=== PATIENT | female | born 1990 | race Caucasian/White ===

== ENCOUNTER 2019-03-28 14:58 | Emergency (ER) | payer BC ==
[2019-03-28 16:25] VITALS: BP 132/79
[2019-03-28] MEDS ORDERED: Lidocaine 4% TOPICAL* 50 ML TOP.SOLN TOPICAL ONE (16:38)
[2019-03-28] MEDS ORDERED: Lidocaine 1% MPF ** 5 ML VIAL INJ ONE (16:40)
--- NOTE | 2019-03-28 17:00 | UC ---
Skin Complaint HPI - HPI Summary HPI Summary: patient has 5 dermal piercings on her abdomen--her ob doctor wants them removed as she may need to have a due to lack of growth--some of the dermal have been in for over 10 years - History of Current Complaint Chief Complaint: [facility]CSkin Time Seen by Provider: 03/28/19 16:30 Stated Complaint: SKIN COMPLAINT Hx Obtained From: Patient ?: Yes Timing: Constant Pain Intensity: 0 Pain Scale Used: 0-10 Numeric Location: Diffuse Aggravating Factor(s): Nothing Alleviating Factor(s): Nothing Associated Signs & Symptoms: Positive: Negative Related History: Foreign Body - Allergy/Home Medications Allergies/Adverse Reactions: Allergies Allergy/AdvReac Type Severity Reaction Status Date / Time erythromycin base Allergy Unknown Verified 03/28/19 16:27 [From Pediazole] Reaction Details sulfisoxazole Allergy Unknown Verified 03/28/19 16:27 [From Pediazole] Reaction Details Home Medications: Home Medications NK [No Home Medications Reported] 03/28/19 [History Confirmed 03/28/19] PMH/Surg Hx/FS Hx/Imm Hx Previously Healthy: Yes - Surgical History Surgical History: Yes Surgery Procedure, Year, and Place: breast augmentation - Family History Known Family History: Positive: None - Social History Occupation: Employed Full-time Lives: With Family Alcohol Use: None Substance Use Type: None Smoking Status (MU): Former Smoker Length of Time of Smoking/Using Tobacco: quit 1 week ago when she found out about the poor growth Review of Systems All Other Systems Reviewed And Are Negative: Yes Constitutional: Positive: Negative Skin: Positive: Other - 5 dermals implanted in abdomen about 10 years ago Eyes: Positive: Negative ENT: Positive: Negative Respiratory: Positive: Negative Cardiovascular: Positive: Negative Gastrointestinal: Positive: Negative Genitourinary: Positive: Negative Motor: Positive: Negative Neurovascular: Positive: Negative Musculoskeletal: Positive: Negative Neurological: Positive: Negative Psychological: Positive: Negative Is Patient Immunocompromised?: No Physical Exam Triage Information Reviewed: Yes Appearance: Well-Appearing, No Pain Distress, Well-Nourished Vital Signs: Initial Vital Signs Temp 99 F 03/28/19 16:21 Pulse 97 03/28/19 16:21 Resp 16 03/28/19 16:21 BP 132/79 03/28/19 16:21 Pulse Ox 100 03/28/19 16:21 Vital Signs Reviewed: Yes Eye Exam: Normal Eyes: Positive: Conjunctiva Clear ENT Exam: Normal ENT: Positive: Normal ENT inspection, Hearing grossly normal. Negative: Trismus , Muffled voice, Hoarse voice Dental Exam: Normal Neck exam: Normal Neck: Positive: Supple, Nontender Respiratory Exam: Normal Respiratory: Positive: Chest non-tender, No respiratory distress, No accessory muscle use Cardiovascular Exam: Normal Cardiovascular: Positive: RRR, Pulses Normal, Brisk Capillary Refill Abdominal Exam: Normal Musculoskeletal Exam: Normal Musculoskeletal: Positive: Strength Intact, ROM Intact, No Edema Neurological Exam: Normal Neurological: Positive: Alert, Muscle Tone Normal Psychological Exam: Normal Skin Exam: Normal Course/Dx - Course Course Of Treatment: discussed options with Dr. Gayle her provided an evidence based practice that dermal will not affect cautery during surgery-- suggested she discuss this with ob doctor and referal made to surgical associates if dermals still need to be removed - Diagnoses Provider Diagnosis: Foreign body (FB) in soft tissue, Discharge ED - Sign-Out/Discharge Documenting (check all that apply): Patient Departure All imaging exams completed and their final reports reviewed: No Studies - Discharge Plan Condition: Stable Disposition: HOME Patient Education Materials: Soft Tissue Foreign Body (ED) Referrals: Arin Salmon MD [Medical Doctor] - 2 Days - Billing Disposition and Condition Condition: STABLE Disposition: Home
== END 2019-03-28 17:10 | disposition home or self-care (01) ==
LOC: UCEAST 14:58
DX: O9A.219 Injury, poisoning and certain other consequences of external causes complicating pregnancy, unspecified trimester (principal); S30.851A Superficial foreign body of abdominal wall, initial encounter; X58.XXXA Exposure to other specified factors, initial encounter; Y92.9 Unspecified place or not applicable; Z88.2 Allergy status to sulfonamides; Z87.891 Personal history of nicotine dependence
CPT/HCPCS: 99211; G0463

== ENCOUNTER 2019-04-21 13:13 | Inpatient (IN) | payer BC ==
[2019-04-21] MEDS ORDERED: Lactated Ringers 1000 ML Bag* 1,000 ML IV ONE ×2 (14:14→22:08)
[2019-04-21] MEDS ORDERED: Penicillin G Potassium IV* 5,000,000 UNITS in NS 0.9% 100 ML* 100 ML IVPB ONE (14:14)
[2019-04-21] MEDS ORDERED: Buffered Lidocaine 1% SYRIN* 1 ML/SYRINGE INTRADERM ONE (14:14)
[2019-04-21] MEDS ORDERED: Lactated Ringers 1000 ML Bag* 1,000 ML IV SCH ×2 (15:00→23:00)
[2019-04-21] MEDS ORDERED: Penicillin G Potassium IV* 3,000,000 UNITS in NS 0.9% 100 ML* 100 ML IVPB SCH (15:00)
[2019-04-21] MEDS ORDERED: Oxytocin in LR* 20 UNITS/1,000 ML BAG IVPB SCH (15:00)
[2019-04-21 15:03] LABS: ABS Basophils 0.1 10^3/ul (0-0.2); ABS Monocytes 0.6 10^3/ul (0-0.8); ABS Neutrophils 10.3 10^3/ul (1.5-7.7); Eosinophil % 0.3 %; Hematocrit 36 % (35-47); Hemoglobin 12.3 g/dL (12.0-16.0); Lymphocyte % 15.5 %; Mean Corpuscular HGB Conc 34 g/dL (31-36); Mean Corpuscular Hemoglobin 30 pg (27-31); Mean Corpuscular Volume 88 fL (80-97); Mean Platelet Volume 8.8 fL (7.4-10.4); Platelet Count 302 10^3/uL (150-450); Red Blood Count 4.06 10^6 /uL (3.70-4.87); Red Cell Distribution Width 14 % (10-15); White Blood Count 13.2 10^3/uL (3.5-10.8)
[2019-04-21 15:30] LABS: Urine Benzodiazepine Screen None Detected (None Detect); Urine Opiates Screen None Detected (None Detect)
[2019-04-21] MEDS: PENICILLIN POTASSIUM IVPB SCH ×2 (19:49→23:52)
[2019-04-21] MEDS: NS 0.9% IVPB SCH ×2 (19:49→23:52)
[2019-04-21] MEDS ORDERED: OBEPIDURAL* 250 ML EPIDURAL ONE (20:28)
[2019-04-21] MEDS ORDERED: Lactated Ringers 1000 ML Bag* 500 ML IV PRN ×2 (22:08)
[2019-04-21] MEDS ORDERED: Famotidine TAB* 20 MG PO PRN (22:08)
[2019-04-21] MEDS ORDERED: Phenylephrine 40 MCG/ML SYRINGE IV PUSH PRN ×2 (22:08)
[2019-04-21] MEDS ORDERED: EPHEDrine (Pressors)* 50 MG/ML VIAL IV PUSH PRN ×2 (22:08)
[2019-04-21] MEDS ORDERED: Sodium Citrate/Citric Acid* 15 ML UDC PO PRN (22:08)
[2019-04-21] MEDS ORDERED: OBEPIDURAL* 250 ML EPIDURAL SCH (23:00)
[2019-04-22] MEDS: PENICILLIN POTASSIUM IVPB SCH ×3 (04:16→12:29)
[2019-04-22] MEDS: NS 0.9% IVPB SCH ×3 (04:16→12:29)
[2019-04-22] MEDS ORDERED: OBEPIDURAL* 250 ML EPIDURAL ONE (11:10)
[2019-04-22] MEDS ORDERED: fentaNYL* 50 MCG/ML 2 ML VIAL (100 MCG VIAL) ONE (12:03)
[2019-04-22] MEDS ORDERED: Bupivacaine 0.25% SDV PF* 10 ML VIAL INJ ONE (12:04)
[2019-04-22] MEDS ORDERED: RHO D Immune Globulin (HUMAN)* 300 MCG = 1,500 I.U. INJ IM ONE (13:01)
[2019-04-22] MEDS ORDERED: Witch Hazel PAD* JAR TOPICAL PRN (13:01)
[2019-04-22] MEDS ORDERED: Dibucaine 1% 28.35 GM TUBE PR PRN (13:01)
[2019-04-22] MEDS ORDERED: Misoprostol TAB* 200 MCG PR ONE (13:01)
[2019-04-22] MEDS ORDERED: Glycerin ADULT SUPP PR PRN (13:01)
--- NOTE | 2019-04-22 13:07 | PROCNOTE ---
[facility] OB: Delivery Note - Delivery A Date of : 04/22/19 Time of : 12:45 Sex: Male Score 1 Minute: 9 Score 5 Minutes: 9 Gestational Age in Weeks and Days at Delivery: 38 Weeks and 6 Days Delivery Method: Spontaneous Vaginal Labor: Induced Did Patient attempt ?: N/A, No Previous Amniotic Fluid: Clear Estimated Blood Loss: 300 Anesthesia/Analgesia: ITF/Spinal for Labor, CEI for Labor Delivered By: Marybeth Underwood - Perineum Perineal Injury: 1st Degree - repair with 3.0 vicryl rapide Perineal Repair: By Delivering Practioner - Events Delivery Events of Note: Supplemental O2 to Mother, Full Course of Antibiotics Delivery Events of Note Comment: nuchal cord X 1 body cord x 1 induction for IUGR. placenta 3VC/ intact / spontaneous
[2019-04-22] MEDS ORDERED: Misoprostol TAB* 200 MCG ONE (13:16)
[2019-04-22] MEDS ORDERED: Lactated Ringers 1000 ML Bag* 1,000 ML IV SCH (14:00)
[2019-04-22] MEDS ORDERED: Oxytocin in LR* 20 UNITS/1,000 ML BAG IVPB SCH (14:00)
[2019-04-22] MEDS: Ibuprofen TAB* 600 MG PO PRN ×2 (14:42→20:25)
[2019-04-22] MEDS: Docusate CAP* 100 MG PO SCH ×2 (14:42→20:25)
[2019-04-22] MEDS ORDERED: Simethicone TAB* 80 MG TAB.CHEW PO SCH (17:30)
[2019-04-22] MEDS: Acetaminophen TAB* 325 MG PO PRN (20:25)
[2019-04-23] MEDS: Acetaminophen TAB* 325 MG PO PRN ×4 (00:02→20:28)
[2019-04-23] MEDS: Ibuprofen TAB* 600 MG PO PRN ×3 (04:15→20:28)
[2019-04-23 05:20] LABS: ABS Basophils 0.1 10^3/ul (0-0.2); ABS Eosinophils 0.2 10^3/ul (0-0.6); ABS Monocytes 1.4 10^3/ul (0-0.8); Eosinophil % 0.8 %; Hematocrit 30 % (35-47); Hemoglobin 10.1 g/dL (12.0-16.0); Lymphocyte % 21.2 %; Mean Corpuscular HGB Conc 34 g/dL (31-36); Mean Corpuscular Hemoglobin 31 pg (27-31); Mean Corpuscular Volume 90 fL (80-97); Mean Platelet Volume 8.5 fL (7.4-10.4); Platelet Count 251 10^3/uL (150-450); Red Cell Distribution Width 14 % (10-15); White Blood Count 18.7 10^3/uL (3.5-10.8)
[2019-04-23] MEDS ORDERED: Ferrous Gluconate TAB* 324 MG TAB PO SCH (09:00)
[2019-04-23] MEDS: Docusate CAP* 100 MG PO SCH ×3 (09:09→20:28)
[2019-04-24] MEDS: Ibuprofen TAB* 600 MG PO PRN (08:11)
[2019-04-24] MEDS: Docusate CAP* 100 MG PO SCH (08:11)
[2019-04-24 09:53] VITALS: BP 129/72
== END 2019-04-24 13:25 | disposition home or self-care (01) | DRG 560 ==
LOC: MCHOBOUT 13:13 → MCHOB 14:11
PROVIDERS: ADMIT Obstetrics & Gynecology; ATTEND Obstetrics & Gynecology
PROC: 10E0XZZ Delivery of Products of Conception, External Approach (ICD-10-PCS; principal; 2019-04-22)
PROC: 3E033VJ Introduction of Other Hormone into Peripheral Vein, Percutaneous Approach (ICD-10-PCS; 2019-04-22)
PROC: 10907ZC Drainage of Amniotic Fluid, Therapeutic from Products of Conception, Via Natural or Artificial Opening (ICD-10-PCS; 2019-04-22)
PROC: 0HQ9XZZ Repair Perineum Skin, External Approach (ICD-10-PCS; 2019-04-22)
DX: O99.824 Streptococcus B carrier state complicating childbirth (principal); Z37.0 Single live birth; O99.334 Smoking (tobacco) complicating childbirth; O36.5990 Maternal care for other known or suspected poor fetal growth, unspecified trimester, not applicable or unspecified; O70.0 First degree perineal laceration during delivery; O69.81X0 Labor and delivery complicated by cord around neck, without compression, not applicable or unspecified; Z3A.38 38 weeks gestation of pregnancy
CPT/HCPCS: 36415; 80307; 85025; 85461; 86850; 86900; 86901; A9270-GY; G0480; J2540; J2790; J3010; J3490